=== PATIENT | female | born 1990 | race African-American/Black ===

== ENCOUNTER 2025-04-02 13:43 | Emergency (ER) | payer MEDICAID, OTHER ==
[~2025-04-02] VITALS: Ht 167.6 cm; Wt 102.0 kg
[2025-04-02] MEDS: PREDNISONE 20MG TABLET PO STA (18:40)
[2025-04-02 19:57] VITALS: PULSE 74; RESP 16; O2SAT 100
[2025-04-02] MEDS: IPRATROPIUM BROMIDE (0.02%) 0.5MG/2.5ML NEB HHN STA (19:57)
[2025-04-02] MEDS: ALBUTEROL (0.083%) 2.5MG/3ML NEB HHN STA (19:57)
[2025-04-02 20:45] VITALS: BP 132/63; PULSE 83; RESP 18; TEMP 36.9; O2SAT 100
[2025-04-02 21:29] LABS: CLARITY URINE TURBID (CLEAR); COLOR URINE YELLOW (YELLOW); GLUCOSE URINE NEGATIVE (NEGATIVE); KETONES URINE TRACE (NEGATIVE); LEUKOCYTE ESTERASE URINE 2+ (NEGATIVE); NITRITE URINE NEGATIVE (NEGATIVE); OCCULT BLOOD URINE 1+ (NEGATIVE); PH URINE 5.0 (4.5-8.0); PROTEIN URINE TRACE (NEGATIVE); SPECIFIC GRAVITY URINE 1.028 (1.005-1.030); UROBILINOGEN URINE 1 E.U./dL (0.2-1.0)
[2025-04-02 21:32] LABS: BASOPHILS % 0.4 % (0.0-2.0); EOSINOPHILS % 0.6 % (0.0-5.0); HEMATOCRIT. 39.5 % (36.0-48.0); HEMOGLOBIN. 12.7 g/dL (12.0-16.0); LYMPHOCYTES % 11.5 % (20.0-50.0); MEAN PLATELET VOLUME 7.6 fl (7.4-10.4); MONOCYTES % 1.8 % (2.0-8.0); NEUTROPHILS % 85.7 % (40.0-76.0); PLATELET 313 x1000/uL (130-400); RED BLOOD CELL COUNT 5.28 mill/uL (4.2-5.4); RED CELL DISTRIBUTION WIDTH 15.5 % (11.6-14.6)
[2025-04-02 21:40] LABS: INR 1.0
[2025-04-02] MEDS ORDERED: IBUP-2029 MT (21:41)
[2025-04-02] MEDS ORDERED: ALBU18HF2 IH (21:41)
[2025-04-02] MEDS ORDERED: P20 MT (21:41)
[2025-04-02 21:59] LABS: CREATININE 0.7 mg/dL (0.6-1.0); UREA NITROGEN BLOOD 14 mg/dL (9-23)
[2025-04-02 22:00] LABS: TROPONIN I HIGH SENSITIVITY < 4 ng/L (3.0-34)
[2025-04-02 22:01] LABS: ASPARTATE AMINOTRANSFERASE 13 IU/L (<34); BILIRUBIN DIRECT < 0.1 mg/dL (<=3.0); BILIRUBIN TOTAL 0.3 mg/dL (0.1-1.0)
[2025-04-02 22:02] LABS: PROTEIN TOTAL 7.6 g/dL (6.0-8.3)
[2025-04-02 22:07] LABS: WBC URINE TNTC /hpf (0-2)
[2025-04-02 22:08] LABS: BACTERIA URINE 2+; SQUAMOUS EPITHELIAL CELL URINE 2+ /lpf (RARE/1+)
[2025-04-02] MEDS ORDERED: NITR100C MT (22:28)
== END 2025-04-02 22:53 | disposition home or self-care (01) ==
LOC: ER 13:43 → EDBEDREQ 22:35 → EDBEDREQTM 22:35 → ER 22:53
DX: R07.89 Other chest pain (principal); J02.9 Acute pharyngitis, unspecified; J45.909 Unspecified asthma, uncomplicated; N39.0 Urinary tract infection, site not specified; R79.89 Other specified abnormal findings of blood chemistry; H92.01 Otalgia, right ear
CPT/HCPCS: 80076; 80048; 81003; 87430; 85025; 85379; 85610; 84484; 87070; 36415; 71045; 94640; 93005; 99285; J7512; Z7610 ×3; 94070; 94664; 98960

== ENCOUNTER 2025-04-06 10:14 | Emergency (ER) | payer OTHER ==
[~2025-04-06] VITALS: Ht 167.6 cm; Wt 102.0 kg
[~2025-04-06 10:14] MED LIST: ALBU18HF2 IH; IBUP-2029 MT; NITR100C MT; P20 MT
[2025-04-06 10:17] VITALS: O2SAT 99
[2025-04-06 11:46] LABS: BASOPHILS % 0.7 % (0.0-2.0); EOSINOPHILS % 5.1 % (0.0-5.0); HEMATOCRIT. 39.2 % (36.0-48.0); HEMOGLOBIN. 12.6 g/dL (12.0-16.0); LYMPHOCYTES % 24.9 % (20.0-50.0); MEAN PLATELET VOLUME 7.7 fl (7.4-10.4); MONOCYTES % 6.2 % (2.0-8.0); NEUTROPHILS % 63.1 % (40.0-76.0); PLATELET 294 x1000/uL (130-400); RED BLOOD CELL COUNT 5.22 mill/uL (4.2-5.4); RED CELL DISTRIBUTION WIDTH 15.4 % (11.6-14.6)
[2025-04-06 12:04] LABS: INR 1.0
[2025-04-06 12:05] LABS: CREATININE 0.8 mg/dL (0.6-1.0); UREA NITROGEN BLOOD 12 mg/dL (9-23)
[2025-04-06 12:06] LABS: TROPONIN I HIGH SENSITIVITY < 4 ng/L (3.0-34)
[2025-04-06 12:33] LABS: CLARITY URINE CLEAR (CLEAR); COLOR URINE YELLOW (YELLOW); GLUCOSE URINE NEGATIVE (NEGATIVE); KETONES URINE NEGATIVE (NEGATIVE); LEUKOCYTE ESTERASE URINE NEGATIVE (NEGATIVE); NITRITE URINE NEGATIVE (NEGATIVE); OCCULT BLOOD URINE TRACE (NEGATIVE); PH URINE 6.5 (4.5-8.0); PROTEIN URINE NEGATIVE (NEGATIVE); SPECIFIC GRAVITY URINE 1.024 (1.005-1.030); UROBILINOGEN URINE 1.0 E.U./dL (0.2-1.0)
[2025-04-06 12:51] LABS: BACTERIA URINE FEW; RBC URINE 0-2 /hpf (0-2); SQUAMOUS EPITHELIAL CELL URINE FEW /lpf (RARE/1+); WBC URINE 0-2 /hpf (0-2); YEAST URINE NONE SEEN
[2025-04-06 14:27] VITALS: BP 125/76; PULSE 74; RESP 16; TEMP 37; O2SAT 100
[2025-04-06] MEDS ORDERED: IOHEXOL-350 100 ML BOTTLE ONE (14:48)
[2025-04-06 15:01] LABS: HCG SCREEN NEGATIVE
== END 2025-04-06 14:38 | disposition home or self-care (01) ==
LOC: ER 10:14
DX: R06.02 Shortness of breath (principal); J45.909 Unspecified asthma, uncomplicated; Z90.89 Acquired absence of other organs; Z79.899 Other long term (current) drug therapy
CPT/HCPCS: 80048; 81003; 81025; 84703; 83880; 83690; 85025; 85379; 85610; 85730; 86850; 86900; 86901; 84484; 36415; 71275; 99285; Q9967; Z7610